=== PATIENT | male | born 1935 | race Caucasian/White ===

== ENCOUNTER 2018-10-28 17:30 | Emergency (ER) | payer MEDICARE, OTHER ==
[~2018-10-28] VITALS: Ht 177.8 cm; Wt 97.7 kg
[2018-10-28] MEDS ORDERED: ASPI-1182 PO (17:45)
[2018-10-28] MEDS ORDERED: LIRA0.6P SQ (17:45)
[2018-10-28] MEDS ORDERED: TraMADol HCL 50 MG TABLET PO ONE (18:30)
[2018-10-28 21:00] VITALS: BP 169/100
== END 2018-10-28 21:15 | disposition home or self-care (01) ==
LOC: EMS 17:32
DX: S00.83XA Contusion of other part of head, initial encounter (principal); S80.01XA Contusion of right knee, initial encounter; M25.531 Pain in right wrist; E11.9 Type 2 diabetes mellitus without complications; E78.00 Pure hypercholesterolemia, unspecified; I10 Essential (primary) hypertension; Z79.82 Long term (current) use of aspirin; W18.09XA Striking against other object with subsequent fall, initial encounter; Y93.01 Activity, walking, marching and hiking; Y92.89 Other specified places as the place of occurrence of the external cause; Y99.8 Other external cause status
CPT/HCPCS: 70450